=== PATIENT | female | born 1970 | race Caucasian/White ===

== ENCOUNTER 2023-09-18 13:51 | Emergency (ER) | payer BC ==
[~2023-09-18] VITALS: Ht 170.2 cm; Wt 75.0 kg
[2023-09-18 14:29] VITALS: BP 89/47; PULSE 125; RESP 20; TEMP 98.3; O2SAT 100
[2023-09-18 15:06] LABS: BASOPHILS # (AUTO) 0.1 X10'3 (0-0.2); EOSINOPHILS # (AUTO) 0.1 X10'3 (0-0.9); EOSINOPHILS % (AUTO) 0.4 % (0-6); HEMOGLOBIN 8.6 g/dl (12.0-16.0); LYMPHOCYTES # (AUTO) 1.2 X10'3 (1.1-4.8); LYMPHOCYTES % (AUTO) 8.9 % (21-51); MEAN CORPUSCULAR HGB CONC 33.4 g/dL (33.0-36.5); MEAN PLATELET VOLUME 6.9 FL (7.4-10.4); RED BLOOD COUNT 2.78 X10'6 (4.20-5.60)
[2023-09-18 15:07] LABS: BASOPHILS % (AUTO) 0.9 % (0-1); HEMATOCRIT 25.8 % (35.0-45.0); MEAN CORPUSCULAR HEMOGLOBIN 30.9 PG (27.0-31.0); MEAN CORPUSCULAR VOLUME 92.7 FL (78-98); MONOCYTES # (AUTO) 0.6 X10'3 (0-0.9); MONOCYTES % (AUTO) 4.2 % (2-12); NEUTROPHILS % (AUTO) 85.6 % (42-75); RED CELL DISTRIBUTION WIDTH 14.7 % (11.5-14.5)
[2023-09-18 15:10] LABS: PLATELET COUNT 1053 X10'3 (140-440)
[2023-09-18 15:22] LABS: ALANINE AMINOTRANSFERASE 11 U/L (12-78); ALBUMIN 1.8 G/DL (3.4-5.0); ALBUMIN/GLOBULIN RATIO 0.3 (1.1-1.5); ALKALINE PHOSPHATASE 169 IU/L (46-116); ANION GAP 17 (8-16); ASPARTATE AMINO TRANSFERASE 14 U/L (10-37); BILIRUBIN,TOTAL 0.4 MG/DL (0.1-1.0); BLOOD UREA NITROGEN 54 MG/DL (7-18); BUN/CREATININE RATIO 14.2 (10.0-20.0); CALCIUM 7.7 MG/DL (8.5-10.1); CHLORIDE 89 MMOL/L (99-107); GLUCOSE 109 MG/DL (70-104); LIPASE 57 U/L (16-77); POTASSIUM 3.6 MMOL/L (3.5-5.1); SODIUM 128 MMOL/L (135-145); TOTAL CARBON DIOXIDE 22.5 MMOL/L (24-32); eCRCL 17 ML/MIN; eGFR 13 ML/MIN
[2023-09-18 15:41] LABS: LARGE PLATELETS FEW; PLATELET ESTIMATE INCREASED
[2023-09-18 15:42] LABS: SCHISTOCYTES FEW; TEAR DROP CELLS FEW
[2023-09-24] MEDS ORDERED: DOCU-391 PO (14:02)
[2023-09-24] MEDS ORDERED: SYN0.088T PO (14:02)
[2023-09-24] MEDS ORDERED: TOPI-253 PO (14:02)
[2023-09-24] MEDS ORDERED: HYDR-3972 PO (14:02)
[2023-09-24] MEDS ORDERED: SUMA100T16 PO ×2 (14:02)
[2023-09-24] MEDS ORDERED: DULO30CA52 PO (14:05)
[2023-09-24] MEDS ORDERED: OMEP40CA21 PO (14:05)
[2023-09-24] MEDS ORDERED: CIPR750T14 PO (14:05)
[2023-09-24] MEDS ORDERED: NORT25CA PO (14:05)
== END 2023-09-18 23:30 | disposition left against medical advice (07) ==
LOC: ER 13:52
DX: L76.22 Postprocedural hemorrhage of skin and subcutaneous tissue following other procedure (principal); Z53.21 Procedure and treatment not carried out due to patient leaving prior to being seen by health care provider
CPT/HCPCS: 36415; 80053; 83690; 84145; 85008; 85025; 99281; 99284

== ENCOUNTER 2023-09-25 07:59 | Day surgery (SDC) | payer BC ==
[~2023-09-25] VITALS: Ht 167.6 cm; Wt 72.5 kg
[2023-09-25] VITALS (19 sets, daily range): BP systolic 113–137; BP diastolic 64–84; PULSE 101–111; RESP 12–23; TEMP 98.3; O2SAT 93–99
[~2023-09-25 07:59] MED LIST: CIPR750T14 PO; DOCU-391 PO; DULO30CA52 PO; HYDR-3972 PO; NORT25CA PO; OMEP40CA21 PO; SYN0.088T PO; TOPI-253 PO; ceFAZolin inj. 3,000 MG in normal saline 100ml IV soln 100 ML IV ONE; cefazolin 2gm/D5W 100mL 100 ML IV ONE; famotidine 20mg tablet PO ONE; ringers solution, lacted 1,000 ML IV SCH
[2023-09-25] MEDS ORDERED: morphine 4 MG/ML inj SYRINge IV PRN (10:00)
[2023-09-25] MEDS ORDERED: ondansetron/PF 4mg/2ml inj IV PRN (10:00)
[2023-09-25] MEDS ORDERED: fentaNYL/PF 50MCG/1 ML 2ML syringe IV PRN ×2 (10:00)
[2023-09-25] MEDS ORDERED: hydrALAZINE 20mg/ml inj. IV PRN (10:00)
[2023-09-25] MEDS ORDERED: labetalol 20mg/4ml (5mg/ml) syringe IV PRN (10:00)
[2023-09-25] MEDS ORDERED: morphine 2 MG/ML inj. syringe IV PRN (10:00)
[2023-09-25] MEDS ORDERED: ringers solution, lacted 1,000 ML IV SCH (10:00)
[2023-09-25] MEDS ORDERED: acetaminophen 1,000mg/100ml IV 100 ML IV ONE (10:20)
[2023-09-25] MEDS ORDERED: ketorolac trometh. 30mg/ml inj. IV ONE (10:20)
[2023-09-25] MEDS ORDERED: Dakins solution (1/4 strength) 473ml solution TP SCH (11:15)
[2023-09-25] MEDS ORDERED: Dakins solution (1/4 strength) 473ml solution TP ONE (11:15)
[2023-09-25] MEDS ORDERED: midazolam 1 mg/ML 2ml injection ONE (13:08)
[2023-09-25] MEDS ORDERED: fentaNYL/PF 50MCG/1 ML 2ML syringe ONE (13:08)
[2023-09-25] MEDS ORDERED: propofol inj 20 ML IV ONE (13:09)
[2023-09-25] MEDS ORDERED: LIDOcaine 2% (20mg/ml) 5ml vial ONE (13:09)
[2023-09-25] MEDS ORDERED: ondansetron/PF 4mg/2ml inj ONE (13:09)
[2023-09-25] MEDS ORDERED: dexamethasone sod phosphate 4mg/ml inj. ONE (13:09)
[2023-09-25] MEDS ORDERED: desflurane 240ml liquid inh. IH ONE (13:10)
[2023-09-25] MEDS ORDERED: HYDROcodone/acetaminophen 10/325mg tab PO ONE (16:25)
== END 2023-09-25 17:00 | disposition home or self-care (01) ==
LOC: PAS 07:59
PROVIDERS: ATTEND Surgery
DX: T81.89XA Other complications of procedures, not elsewhere classified, initial encounter (principal); I10 Essential (primary) hypertension; K21.9 Gastro-esophageal reflux disease without esophagitis; F32.A Depression, unspecified; F41.9 Anxiety disorder, unspecified; G43.909 Migraine, unspecified, not intractable, without status migrainosus; D64.9 Anemia, unspecified; Z93.2 Ileostomy status; Z90.49 Acquired absence of other specified parts of digestive tract; Z98.890 Other specified postprocedural states; Z79.899 Other long term (current) drug therapy; Z88.2 Allergy status to sulfonamides; Z87.440 Personal history of urinary (tract) infections; Y83.8 Other surgical procedures as the cause of abnormal reaction of the patient, or of later complication, without mention of misadventure at the time of the procedure; Y92.89 Other specified places as the place of occurrence of the external cause
CPT/HCPCS: 10180; 82948; J0131; J0690; J1100; J1885; J2250; J2270; J2405; J2704; J3010; J3490; J7030; J7120; Z7506; Z7512; A4618; A6253; A6446; A6449; A7000

== ENCOUNTER 2023-12-15 11:35 | Inpatient (IN) | payer BC ==
[~2023-12-15] VITALS: Ht 167.6 cm; Wt 66.6 kg
[2023-12-15] VITALS (18 sets, daily range): BP systolic 120–145; BP diastolic 62–86; PULSE 102–115; RESP 16–26; TEMP 97.6–98.7; O2SAT 95–100
[~2023-12-15 11:35] MED LIST changes: -TOPI-253 PO; +TOPI-95 PO; -ceFAZolin inj. 3,000 MG in normal saline 100ml IV soln 100 ML IV ONE; -cefazolin 2gm/D5W 100mL 100 ML IV ONE; -famotidine 20mg tablet PO ONE; -ringers solution, lacted 1,000 ML IV SCH
[2023-12-15] MEDS ORDERED: ringers solution, lacted 1,000 ML IV SCH (11:55)
[2023-12-15] MEDS ORDERED: enalaprilat dihydrate 2.5mg/2ml vial IV PRN (11:55)
[2023-12-15] MEDS ORDERED: proCHLORperazine 10 MG/2 ml inj IV PRN (11:55)
[2023-12-15] MEDS ORDERED: meperidine/PF 25mg/ml syringe IV PRN ×3 (11:55)
[2023-12-15] MEDS ORDERED: labetalol 20mg/4ml (5mg/ml) syringe IV PRN (11:55)
[2023-12-15] MEDS: ringers solution, lacted 1,000 ML IV ONE (12:20)
[2023-12-15] MEDS: ringers solution, lacted 1,000 ML IV SCH (12:20)
[2023-12-15] MEDS ORDERED: HYDROmorphone inj. 0.5 MG/0.5 ML DISP.SYRIN IV PRN (12:25)
[2023-12-15 12:43] LABS: ALANINE AMINOTRANSFERASE 15 U/L (12-78); ALBUMIN 1.7 G/DL (3.4-5.0); ALBUMIN/GLOBULIN RATIO 0.3 (1.1-1.5); ALKALINE PHOSPHATASE 145 IU/L (46-116); ANION GAP 16 (8-16); ASPARTATE AMINO TRANSFERASE 12 U/L (10-37); BILIRUBIN,DIRECT 0.1 MG/DL (0-0.3); BILIRUBIN,TOTAL 0.4 MG/DL (0.1-1.0); BLOOD UREA NITROGEN 6 MG/DL (7-18); BUN/CREATININE RATIO 10.9 (10.0-20.0); CALCIUM 8.2 MG/DL (8.5-10.1); CHLORIDE 93 MMOL/L (99-107); CREATININE 0.55 MG/DL (0.40-0.90); GLUCOSE 82 MG/DL (70-104); POTASSIUM 3.1 MMOL/L (3.5-5.1); SODIUM 133 MMOL/L (135-145); TOTAL CARBON DIOXIDE 24.3 MMOL/L (24-32); TOTAL PROTEIN 6.7 G/DL (6.4-8.2); eCRCL 113 ML/MIN; eGFR > 90 ML/MIN
[2023-12-15 12:45] LABS: EOSINOPHILS % (AUTO) 0.3 % (0-6); HEMOGLOBIN 7.4 g/dl (12.0-16.0); MONOCYTES # (AUTO) 1.9 X10'3 (0-0.9)
[2023-12-15 12:47] LABS: BASOPHILS % (AUTO) 0.1 % (0-1); HEMATOCRIT 22.7 % (35.0-45.0); LYMPHOCYTES # (AUTO) 1.4 X10'3 (1.1-4.8); LYMPHOCYTES % (AUTO) 9.4 % (21-51); MEAN CORPUSCULAR HEMOGLOBIN 29.1 PG (27.0-31.0); MEAN CORPUSCULAR HGB CONC 32.8 g/dL (33.0-36.5); MEAN CORPUSCULAR VOLUME 88.8 FL (78-98); MONOCYTES % (AUTO) 12.6 % (2-12); NEUTROPHILS # (AUTO) 11.7 X10'3 (1.8-7.7); NEUTROPHILS % (AUTO) 77.6 % (42-75); RED BLOOD COUNT 2.56 X10'6 (4.20-5.60); RED CELL DISTRIBUTION WIDTH 15.9 % (11.5-14.5)
[2023-12-15 13:08] LABS: TOTAL CELLS COUNTED 100
[2023-12-15 13:09] LABS: PLATELET ESTIMATE INCREASED; POIKILOCYTOSIS FEW
[2023-12-15 13:10] LABS: STOMATOCYTES FEW
[2023-12-15 13:13] LABS: PLATELET COUNT 934 X10'3 (140-440)
[2023-12-15] MEDS: magnesium 2GM in 50ml NS 50 ML IV ONE (13:45)
[2023-12-15] MEDS ORDERED: Potassium Cl inj 40 MEQ in normal saline 250ml IV soln 250 ML IV ONE (14:00)
[2023-12-15] MEDS ORDERED: sevoflurane 250ml liquid IH ONE (15:04)
[2023-12-15] MEDS ORDERED: midazolam 1 mg/ML 2ml injection ONE (15:07)
[2023-12-15] MEDS ORDERED: fentaNYL /PF 50mcg/ml 5ml ampule ONE (15:07)
[2023-12-15] MEDS ORDERED: propofol inj 20 ML IV ONE (15:09)
[2023-12-15] MEDS ORDERED: LIDOcaine 1%/PF 5ML 10 MG/ML VIAL ONE (15:09)
[2023-12-15] MEDS ORDERED: dexamethasone sod phosphate 4mg/ml inj. ONE (15:21)
[2023-12-15] MEDS ORDERED: rocuronium 10mg/ml inj IV ONE (15:21)
[2023-12-15] MEDS ORDERED: albumin (Human) 5% 250ml 250 ML IV ONE (15:22)
[2023-12-15] MEDS ORDERED: ondansetron/PF 4mg/2ml inj ONE (15:22)
[2023-12-15] MEDS ORDERED: acetaminophen 1,000mg/100ml IV 100 ML IV ONE (16:36)
[2023-12-15] MEDS ORDERED: morphine 4 MG/ML inj SYRINge IV ONE (16:46)
[2023-12-15] MEDS: ondansetron/PF 4mg/2ml inj IV PRN (17:01)
[2023-12-15] MEDS: morphine 2 MG/ML inj. syringe IV PRN (17:03)
[2023-12-15] MEDS: morphine 4 MG/ML inj SYRINge IV PRN (17:19)
[2023-12-15] MEDS: Potassium Cl inj 40 MEQ in normal saline 250ml IV soln 250 ML IV ONE (17:20)
[2023-12-15] MEDS ORDERED: naloxone 0.4 mg/ml inj IV PRN (17:45)
[2023-12-15] MEDS ORDERED: morphine/NS PCA 1mg/ml 50ml 50 ML IV SCH (19:00)
[2023-12-15] MEDS: morphine/NS PCA 1mg/ml 50ml 50 ML IV SCH ×2 (19:55→20:03)
[2023-12-15] MEDS: topiramate 100mg tablet PO SCH (21:00)
[2023-12-15] MEDS: nortriptyline 25mg capsule PO SCH (21:00)
[2023-12-15] MEDS: fluconazole-Diflucan 100MG/NS 50 ML IV SCH (23:11)
[2023-12-16] VITALS (8 sets, daily range): BP systolic 117–131; BP diastolic 61–74; PULSE 88–112; RESP 16–20; TEMP 97.2–98.4; O2SAT 95–97
[2023-12-16] MEDS: piperacillin/tazo 3.375gm/50ml 50 ML IV SCH
[2023-12-16 02:59] LABS: EOSINOPHILS % (AUTO) 0 % (0-6)
[2023-12-16 03:02] LABS: ALBUMIN 1.6 G/DL (3.4-5.0); ANION GAP 21 (8-16); BLOOD UREA NITROGEN 5 MG/DL (7-18); BUN/CREATININE RATIO 10.2 (10.0-20.0); CALCIUM 8.4 MG/DL (8.5-10.1); CHLORIDE 103 MMOL/L (99-107); CREATININE 0.49 MG/DL (0.40-0.90); GLUCOSE 118 MG/DL (70-104); PHOSPHORUS 5.3 MG/DL (2.3-4.5); POTASSIUM 4.3 MMOL/L (3.5-5.1); SODIUM 144 MMOL/L (135-145); TOTAL CARBON DIOXIDE 20.4 MMOL/L (24-32); eCRCL 127 ML/MIN; eGFR > 90 ML/MIN
[2023-12-16 03:03] LABS: BASOPHILS % (AUTO) 0.1 % (0-1); HEMATOCRIT 22.2 % (35.0-45.0); HEMOGLOBIN 7.1 g/dl (12.0-16.0); LYMPHOCYTES % (AUTO) 6.2 % (21-51); MEAN CORPUSCULAR HEMOGLOBIN 28.8 PG (27.0-31.0); MEAN CORPUSCULAR HGB CONC 31.8 g/dL (33.0-36.5); MEAN CORPUSCULAR VOLUME 90.4 FL (78-98); MEAN PLATELET VOLUME 6.1 FL (7.4-10.4); MONOCYTES # (AUTO) 0.6 X10'3 (0-0.9); MONOCYTES % (AUTO) 3.9 % (2-12); NEUTROPHILS # (AUTO) 14.8 X10'3 (1.8-7.7); NEUTROPHILS % (AUTO) 89.8 % (42-75); PLATELET COUNT 883 X10'3 (140-440); RED BLOOD COUNT 2.46 X10'6 (4.20-5.60); RED CELL DISTRIBUTION WIDTH 16.1 % (11.5-14.5); WHITE BLOOD COUNT 16.5 X10'3 (4.5-11.0)
[2023-12-16] MEDS: duloxetine 30mg CAPSULE.DR PO SCH (08:24)
[2023-12-16] MEDS: pantoprazole 40 MG vial IV SCH (08:24)
[2023-12-16] MEDS: topiramate 25mg tablet PO SCH (08:24)
[2023-12-16] MEDS: levoTHYROXINE 88mcg tablet PO SCH (08:24)
[2023-12-16] MEDS: enoxaparin 30mg/0.3ml syringe SUBCUT SCH (08:25)
[2023-12-16] MEDS ORDERED: Dextrose 10%-water IV solution 1,000 ML IV PRN (17:25)
[2023-12-16] MEDS ORDERED: METH-798 PO (19:07)
[2023-12-16] MEDS: METHOCARBAMOL 750 MG TAB PO SCH (20:36)
[2023-12-16] MEDS: metoprolol tartrate 25mg tablet PO SCH (20:37)
[2023-12-16 20:59] LABS: ALANINE AMINOTRANSFERASE 13 U/L (12-78); ALBUMIN 1.6 G/DL (3.4-5.0); ALBUMIN/GLOBULIN RATIO 0.4 (1.1-1.5); ALKALINE PHOSPHATASE 135 IU/L (46-116); ANION GAP 12 (8-16); ASPARTATE AMINO TRANSFERASE 9 U/L (10-37); BILIRUBIN,TOTAL 0.3 MG/DL (0.1-1.0); BLOOD UREA NITROGEN 5 MG/DL (7-18); BUN/CREATININE RATIO 8.5 (10.0-20.0); CALCIUM 8.5 MG/DL (8.5-10.1); CHLORIDE 104 MMOL/L (99-107); CREATININE 0.59 MG/DL (0.40-0.90); GLUCOSE 102 MG/DL (70-104); MAGNESIUM 1.8 MG/DL (1.5-2.4); PHOSPHORUS 3.8 MG/DL (2.3-4.5); POTASSIUM 3.8 MMOL/L (3.5-5.1); SODIUM 141 MMOL/L (135-145); TOTAL CARBON DIOXIDE 24.9 MMOL/L (24-32); TOTAL PROTEIN 6.1 G/DL (6.4-8.2); TRIGLYCERIDES 133 MG/DL (20-135); eCRCL 106 ML/MIN; eGFR > 90 ML/MIN
[2023-12-17] VITALS (8 sets, daily range): BP systolic 117–133; BP diastolic 63–73; PULSE 99–114; RESP 12–18; TEMP 96.6–98.7; O2SAT 93–99
[2023-12-17 07:10] LABS: WHITE BLOOD COUNT 14.4 X10'3 (4.5-11.0)
[2023-12-17 07:14] LABS: HEMATOCRIT 18.7 % (35.0-45.0); HEMOGLOBIN 6.1 g/dl (12.0-16.0); MEAN CORPUSCULAR VOLUME 88.9 FL (78-98)
[2023-12-17 07:15] LABS: ABSOLUTE RETICS # 85000 /CUMM (23000-93000); MEAN CORPUSCULAR HEMOGLOBIN 28.9 PG (27.0-31.0); MEAN CORPUSCULAR HGB CONC 32.5 g/dL (33.0-36.5); MEAN PLATELET VOLUME 5.7 FL (7.4-10.4); PLATELET COUNT 861 X10'3 (140-440); RED CELL DISTRIBUTION WIDTH 16.3 % (11.5-14.5); RETICULOCYTE % (AUTO) 0.4 % (0.5-1.5)
[2023-12-17 07:35] LABS: ALANINE AMINOTRANSFERASE 12 U/L (12-78); ALBUMIN 1.4 G/DL (3.4-5.0); ALBUMIN/GLOBULIN RATIO 0.3 (1.1-1.5); ALKALINE PHOSPHATASE 116 IU/L (46-116); ANION GAP 8 (8-16); ASPARTATE AMINO TRANSFERASE 7 U/L (10-37); BILIRUBIN,TOTAL 0.2 MG/DL (0.1-1.0); BLOOD UREA NITROGEN 5 MG/DL (7-18); BUN/CREATININE RATIO 11.9 (10.0-20.0); CALCIUM 8.4 MG/DL (8.5-10.1); CHLORIDE 104 MMOL/L (99-107); CREATININE 0.42 MG/DL (0.40-0.90); FERRITIN 314 NG/ML (8-252); GLUCOSE 80 MG/DL (70-104); MAGNESIUM 1.7 MG/DL (1.5-2.4); PHOSPHORUS 3.7 MG/DL (2.3-4.5); POTASSIUM 3.5 MMOL/L (3.5-5.1); SODIUM 141 MMOL/L (135-145); TOTAL CARBON DIOXIDE 29.1 MMOL/L (24-32); TOTAL PROTEIN 5.6 G/DL (6.4-8.2); TRIGLYCERIDES 144 MG/DL (20-135); eCRCL 148 ML/MIN; eGFR > 90 ML/MIN
[2023-12-17] MEDS ORDERED: potassium Cl 20 mEq SR tablet PO PRN ×2 (08:55)
[2023-12-17] MEDS ORDERED: magnesium Cl slow-release 64mg tablet PO PRN (08:55)
[2023-12-17] MEDS ORDERED: magnesium 2GM in 50ml NS 50 ML IV PRN (08:55)
[2023-12-17] MEDS ORDERED: magnesium 4gm in 100ml NS 100 ML IV PRN (08:55)
[2023-12-17] MEDS: duloxetine 30mg CAPSULE.DR PO SCH (10:50)
[2023-12-17] MEDS ORDERED: CHROMIC CHLORIDE IV PRN (15:30)
[2023-12-17] MEDS ORDERED: [UNRECOGNIZED DRUG - OTHER] IV PRN (15:30)
[2023-12-17] MEDS ORDERED: COPPER IV PRN (15:30)
[2023-12-17] MEDS ORDERED: SELENIUM IV PRN (15:30)
[2023-12-17] MEDS ORDERED: ZINC IV PRN (15:30)
[2023-12-17] MEDS ORDERED: MANGANESE IV PRN (15:30)
[2023-12-17] MEDS: ZINC/COPPER/MANGANESE/SELENIUM 1 ML, chromic chloride inj. 10 MCG in AA 5%/CALCIUM/LYTE... IV SCH (16:53)
[2023-12-17] MEDS: MVI, adult No.4 with vit. K 10 ML in dextrose 5% water 500ml 500 ML IV SCH (16:53)
[2023-12-17 19:11] LABS: HEMOGLOBIN 7.5 g/dl (12.0-16.0)
[2023-12-17 19:12] LABS: MEAN CORPUSCULAR HGB CONC 32.7 g/dL (33.0-36.5); MEAN CORPUSCULAR VOLUME 88.7 FL (78-98); MEAN PLATELET VOLUME 5.6 FL (7.4-10.4); PLATELET COUNT 782 X10'3 (140-440); RED BLOOD COUNT 2.59 X10'6 (4.20-5.60); RED CELL DISTRIBUTION WIDTH 15.6 % (11.5-14.5)
[2023-12-17] MEDS: NUT.TX.IMPAIRED DIGEST FXN (Ensure Clear) 237 ML PO SCH (19:22)
[2023-12-17] MEDS: K and/or MAG REPLACEMENT MC SCH (20:00)
[2023-12-18] VITALS (18 sets, daily range): BP systolic 116–156; BP diastolic 64–84; PULSE 103–126; RESP 14–27; TEMP 97.5–98.2; O2SAT 94–99
[2023-12-18] MEDS ORDERED: DEXTROSE 15 GM of carb/4 tabs (each vial/BOTTLE has 4 tablets) PO PRN ×2 (01:45)
[2023-12-18] MEDS ORDERED: dextrose 50%-water 50ml dispensing syringe IV PRN ×2 (01:45)
[2023-12-18] MEDS ORDERED: glucagon, human recombinant 1mg kit SUBCUT PRN (01:45)
[2023-12-18] MEDS: MESSAGE TO PHARMACY PO ONE (01:54)
[2023-12-18] MEDS: insulin regular, human U-100 3ml vial - multi-dose SQ SCH (02:27)
[2023-12-18 06:30] LABS: BASOPHILS % (AUTO) 0.1 % (0-1); EOSINOPHILS # (AUTO) 0.1 X10'3 (0-0.9); EOSINOPHILS % (AUTO) 0.5 % (0-6); HEMATOCRIT 23.3 % (35.0-45.0); HEMOGLOBIN 7.5 g/dl (12.0-16.0); LYMPHOCYTES # (AUTO) 2.4 X10'3 (1.1-4.8); LYMPHOCYTES % (AUTO) 17.2 % (21-51); MEAN CORPUSCULAR HEMOGLOBIN 28.3 PG (27.0-31.0); MEAN CORPUSCULAR HGB CONC 32.1 g/dL (33.0-36.5); MEAN CORPUSCULAR VOLUME 88.1 FL (78-98); MEAN PLATELET VOLUME 5.8 FL (7.4-10.4); MONOCYTES # (AUTO) 1.3 X10'3 (0-0.9); MONOCYTES % (AUTO) 9.4 % (2-12); NEUTROPHILS # (AUTO) 10.2 X10'3 (1.8-7.7); NEUTROPHILS % (AUTO) 72.8 % (42-75); PLATELET COUNT 713 X10'3 (140-440); RED BLOOD COUNT 2.65 X10'6 (4.20-5.60); RED CELL DISTRIBUTION WIDTH 15.8 % (11.5-14.5)
[2023-12-18 06:35] LABS: APTT 29 SECONDS (22-32); INR 1.1 INR; PROTHROMBIN TIME 11.8 SECONDS (9.0-12.0)
[2023-12-18 07:04] LABS: ALANINE AMINOTRANSFERASE 11 U/L (12-78); ALBUMIN 1.3 G/DL (3.4-5.0); ALBUMIN/GLOBULIN RATIO 0.3 (1.1-1.5); ALKALINE PHOSPHATASE 107 IU/L (46-116); ANION GAP 5 (8-16); ASPARTATE AMINO TRANSFERASE 13 U/L (10-37); BILIRUBIN,TOTAL 0.2 MG/DL (0.1-1.0); BLOOD UREA NITROGEN 3 MG/DL (7-18); BUN/CREATININE RATIO 6.4 (10.0-20.0); CALCIUM 7.7 MG/DL (8.5-10.1); CHLORIDE 101 MMOL/L (99-107); CREATININE 0.47 MG/DL (0.40-0.90); GLUCOSE 138 MG/DL (70-104); MAGNESIUM 1.6 MG/DL (1.5-2.4); PHOSPHORUS 3.7 MG/DL (2.3-4.5); SODIUM 139 MMOL/L (135-145); TOTAL CARBON DIOXIDE 32.7 MMOL/L (24-32); TOTAL PROTEIN 5.3 G/DL (6.4-8.2); TRIGLYCERIDES 98 MG/DL (20-135); eCRCL 133 ML/MIN; eGFR > 90 ML/MIN
[2023-12-18 07:08] LABS: HEMOGLOBIN A1C 5.3 % (4.5-6.2)
[2023-12-18 07:10] LABS: POTASSIUM 2.7 MMOL/L (3.5-5.1)
[2023-12-18] MEDS: fat emulsion 20% inj. 100 ML IV SCH (09:47)
[2023-12-18] MEDS: potassium Cl 40MEQ/1/2NS 520ml 520 ML IV PRN (09:54)
[2023-12-18] MEDS: ringers solution, lacted 1,000 ML IV SCH (15:40)
[2023-12-18] MEDS ORDERED: meperidine/PF 25mg/ml syringe IV PRN ×2 (15:40)
[2023-12-18] MEDS ORDERED: morphine 2 MG/ML inj. syringe IV PRN (15:40)
[2023-12-18] MEDS ORDERED: morphine 4 MG/ML inj SYRINge IV PRN (15:40)
[2023-12-18] MEDS ORDERED: propofol inj 20 ML IV ONE (16:22)
[2023-12-18] MEDS ORDERED: sevoflurane 250ml liquid IH ONE (16:23)
[2023-12-18] MEDS ORDERED: fentaNYL/PF 50MCG/1 ML 2ML syringe ONE (16:25)
[2023-12-18] MEDS ORDERED: midazolam 1 mg/ML 2ml injection ONE (16:25)
[2023-12-18] MEDS ORDERED: albumin (Human) 5% 250ml 250 ML IV ONE ×2 (17:07→17:31)
[2023-12-18] MEDS: ondansetron/PF 4mg/2ml inj IV PRN (17:45)
[2023-12-18] MEDS: meperidine/PF 25mg/ml syringe IV PRN (17:45)
[2023-12-18] MEDS ORDERED: potassium Cl 40MEQ/270ML bag 270 ML IV PRN (19:55)
[2023-12-18] MEDS ORDERED: insulin glargine (Lantus) pen - multi-dose SQ SCH (21:00)
[2023-12-18] MEDS: PCA WASTE DOCUMENTATION 1 MG ML MC PRN (21:16)
[2023-12-18] MEDS: proCHLORperazine 10 MG/2 ml inj IV PRN (23:01)
[2023-12-19] VITALS (7 sets, daily range): BP systolic 107–135; BP diastolic 60–76; PULSE 94–113; RESP 14–18; TEMP 97.3–99.4; O2SAT 94–96
[2023-12-19] MEDS ORDERED: DEXTROSE 15 GM of carb/4 tabs (each vial/BOTTLE has 4 tablets) PO PRN ×2 (03:05)
[2023-12-19] MEDS ORDERED: glucagon, human recombinant 1mg kit SUBCUT PRN (03:05)
[2023-12-19] MEDS: MESSAGE TO PHARMACY PO ONE (03:05)
[2023-12-19] MEDS ORDERED: dextrose 50%-water 50ml dispensing syringe IV PRN ×2 (03:05)
[2023-12-19] MEDS: insulin regular, human U-100 3ml vial - multi-dose SQ SCH (08:53)
[2023-12-19 09:22] LABS: EOSINOPHILS # (AUTO) 0.1 X10'3 (0-0.9); EOSINOPHILS % (AUTO) 0.7 % (0-6); HEMOGLOBIN 7.9 g/dl (12.0-16.0); MEAN CORPUSCULAR HEMOGLOBIN 29.1 PG (27.0-31.0); MEAN PLATELET VOLUME 5.9 FL (7.4-10.4); NEUTROPHILS # (AUTO) 12.1 X10'3 (1.8-7.7); RED BLOOD COUNT 2.73 X10'6 (4.20-5.60)
[2023-12-19 09:24] LABS: BASOPHILS % (AUTO) 0.2 % (0-1); HEMATOCRIT 24.3 % (35.0-45.0); LYMPHOCYTES # (AUTO) 2.2 X10'3 (1.1-4.8); LYMPHOCYTES % (AUTO) 14.3 % (21-51); MEAN CORPUSCULAR HGB CONC 32.7 g/dL (33.0-36.5); MEAN CORPUSCULAR VOLUME 88.9 FL (78-98); MONOCYTES # (AUTO) 0.8 X10'3 (0-0.9); MONOCYTES % (AUTO) 5.3 % (2-12); NEUTROPHILS % (AUTO) 79.5 % (42-75); RED CELL DISTRIBUTION WIDTH 15.3 % (11.5-14.5); WHITE BLOOD COUNT 15.3 X10'3 (4.5-11.0)
[2023-12-19 09:42] LABS: ALANINE AMINOTRANSFERASE 15 U/L (12-78); ALBUMIN 1.6 G/DL (3.4-5.0); ALBUMIN/GLOBULIN RATIO 0.4 (1.1-1.5); ALKALINE PHOSPHATASE 102 IU/L (46-116); ANION GAP 6 (8-16); ASPARTATE AMINO TRANSFERASE 10 U/L (10-37); BILIRUBIN,TOTAL 0.3 MG/DL (0.1-1.0); BLOOD UREA NITROGEN 5 MG/DL (7-18); BUN/CREATININE RATIO 10.6 (10.0-20.0); CALCIUM 8.2 MG/DL (8.5-10.1); CHLORIDE 101 MMOL/L (99-107); CREATININE 0.47 MG/DL (0.40-0.90); GLUCOSE 224 MG/DL (70-104); MAGNESIUM 1.5 MG/DL (1.5-2.4); PHOSPHORUS 3.9 MG/DL (2.3-4.5); POTASSIUM 3.4 MMOL/L (3.5-5.1); SODIUM 137 MMOL/L (135-145); TOTAL CARBON DIOXIDE 29.8 MMOL/L (24-32); TOTAL PROTEIN 5.4 G/DL (6.4-8.2); TRIGLYCERIDES 96 MG/DL (20-135); eCRCL 133 ML/MIN; eGFR > 90 ML/MIN
[2023-12-19 11:11] LABS: PLATELET COUNT 672 X10'3 (140-440)
[2023-12-19 11:13] LABS: HYPOCHROMASIA 1+; PLATELET ESTIMATE INCREASED
[2023-12-19 11:15] LABS: BURR CELLS FEW
[2023-12-19 11:20] LABS: ANISOCYTOSIS FEW; POLYCHROMASIA FEW; STOMATOCYTES FEW
[2023-12-19] MEDS: magnesium 4gm in 100ml NS 100 ML IV ONE (13:53)
[2023-12-19] MEDS: insulin glargine (Lantus) pen - multi-dose SQ SCH (21:00)
[2023-12-20 06:00] VITALS: BP 117/59; PULSE 90; RESP 13; TEMP 98.2; O2SAT 97
[2023-12-20 07:28] LABS: ALANINE AMINOTRANSFERASE 24 U/L (12-78); ALBUMIN 1.5 G/DL (3.4-5.0); ALBUMIN/GLOBULIN RATIO 0.3 (1.1-1.5); ALKALINE PHOSPHATASE 172 IU/L (46-116); ANION GAP 3 (8-16); ASPARTATE AMINO TRANSFERASE 20 U/L (10-37); BILIRUBIN,TOTAL 0.3 MG/DL (0.1-1.0); BLOOD UREA NITROGEN 9 MG/DL (7-18); BUN/CREATININE RATIO 23.1 (10.0-20.0); CALCIUM 8.5 MG/DL (8.5-10.1); CHLORIDE 100 MMOL/L (99-107); CREATININE 0.39 MG/DL (0.40-0.90); MAGNESIUM 1.9 MG/DL (1.5-2.4); POTASSIUM 3.9 MMOL/L (3.5-5.1); SODIUM 135 MMOL/L (135-145); TOTAL CARBON DIOXIDE 32.3 MMOL/L (24-32); TOTAL PROTEIN 5.8 G/DL (6.4-8.2); TRIGLYCERIDES 107 MG/DL (20-135); eCRCL 160 ML/MIN; eGFR > 90 ML/MIN
[2023-12-20 07:44] LABS: GLUCOSE 44 MG/DL (70-104)
[2023-12-20 18:00] VITALS: BP 102/54; PULSE 89; RESP 16; TEMP 98.3; O2SAT 98
[2023-12-20 22:00] VITALS: BP 97/45; PULSE 96; RESP 17; TEMP 97.3; O2SAT 99
[2023-12-21 06:00] VITALS: BP 109/57; PULSE 101; RESP 17; TEMP 97.7; O2SAT 99
[2023-12-21 06:45] LABS: ALANINE AMINOTRANSFERASE 19 U/L (12-78); ALBUMIN 1.5 G/DL (3.4-5.0); ALBUMIN/GLOBULIN RATIO 0.4 (1.1-1.5); ALKALINE PHOSPHATASE 118 IU/L (46-116); ANION GAP 3 (8-16); ASPARTATE AMINO TRANSFERASE 14 U/L (10-37); BILIRUBIN,TOTAL 0.2 MG/DL (0.1-1.0); BLOOD UREA NITROGEN 12 MG/DL (7-18); BUN/CREATININE RATIO 27.3 (10.0-20.0); CALCIUM 8.6 MG/DL (8.5-10.1); CHLORIDE 100 MMOL/L (99-107); CREATININE 0.44 MG/DL (0.40-0.90); GLUCOSE 120 MG/DL (70-104); MAGNESIUM 1.7 MG/DL (1.5-2.4); POTASSIUM 3.7 MMOL/L (3.5-5.1); SODIUM 134 MMOL/L (135-145); TOTAL CARBON DIOXIDE 31.4 MMOL/L (24-32); TOTAL PROTEIN 5.7 G/DL (6.4-8.2); TRIGLYCERIDES 131 MG/DL (20-135); eCRCL 142 ML/MIN; eGFR > 90 ML/MIN
[2023-12-21 10:00] VITALS: BP 112/61; PULSE 94; RESP 17; TEMP 97.2; O2SAT 98
[2023-12-21] MEDS: morphine/NS PCA 1mg/ml 50ml 50 ML IV SCH (11:58)
[2023-12-21 18:00] VITALS: BP 110/54; PULSE 81; RESP 17; TEMP 97.1; O2SAT 99
[2023-12-21 20:00] VITALS: RESP 17; O2SAT 99
[2023-12-21 22:00] VITALS: BP 104/46; PULSE 101; RESP 16; TEMP 98.1; O2SAT 99
[2023-12-22] MEDS: acetaminophen 1,000mg/100ml IV 100 ML IV SCH
[2023-12-22 05:54] LABS: BASOPHILS # (AUTO) 0.1 X10'3 (0-0.2); BASOPHILS % (AUTO) 0.4 % (0-1); EOSINOPHILS # (AUTO) 0.4 X10'3 (0-0.9); EOSINOPHILS % (AUTO) 3.8 % (0-6); HEMOGLOBIN 7.2 g/dl (12.0-16.0); LYMPHOCYTES # (AUTO) 2.8 X10'3 (1.1-4.8); LYMPHOCYTES % (AUTO) 24.3 % (21-51); MEAN CORPUSCULAR HEMOGLOBIN 29.3 PG (27.0-31.0); MEAN CORPUSCULAR HGB CONC 33.2 g/dL (33.0-36.5); MEAN CORPUSCULAR VOLUME 88.4 FL (78-98); MEAN PLATELET VOLUME 5.7 FL (7.4-10.4); MONOCYTES # (AUTO) 1.4 X10'3 (0-0.9); MONOCYTES % (AUTO) 12.6 % (2-12); NEUTROPHILS # (AUTO) 6.7 X10'3 (1.8-7.7); NEUTROPHILS % (AUTO) 58.9 % (42-75); PLATELET COUNT 546 X10'3 (140-440); RED BLOOD COUNT 2.46 X10'6 (4.20-5.60); RED CELL DISTRIBUTION WIDTH 15.4 % (11.5-14.5); WHITE BLOOD COUNT 11.3 X10'3 (4.5-11.0)
[2023-12-22 06:00] VITALS: BP 108/60; PULSE 92; RESP 17; TEMP 97.7; O2SAT 99
[2023-12-22 06:03] LABS: HEMATOCRIT 21.8 % (35.0-45.0)
[2023-12-22 06:40] LABS: ALANINE AMINOTRANSFERASE 24 U/L (12-78); ALBUMIN 1.5 G/DL (3.4-5.0); ALBUMIN/GLOBULIN RATIO 0.3 (1.1-1.5); ALKALINE PHOSPHATASE 127 IU/L (46-116); ANION GAP 6 (8-16); ASPARTATE AMINO TRANSFERASE 22 U/L (10-37); BILIRUBIN,TOTAL 0.1 MG/DL (0.1-1.0); BLOOD UREA NITROGEN 12 MG/DL (7-18); BUN/CREATININE RATIO 33.3 (10.0-20.0); CALCIUM 8.1 MG/DL (8.5-10.1); CHLORIDE 100 MMOL/L (99-107); CREATININE 0.36 MG/DL (0.40-0.90); GLUCOSE 97 MG/DL (70-104); POTASSIUM 3.8 MMOL/L (3.5-5.1); SODIUM 135 MMOL/L (135-145); TOTAL CARBON DIOXIDE 29.5 MMOL/L (24-32); TOTAL PROTEIN 5.9 G/DL (6.4-8.2); eCRCL 173 ML/MIN; eGFR > 90 ML/MIN
[2023-12-22] MEDS ORDERED: PCA WASTE DOCUMENTATION 1 MG ML MC PRN (10:35)
[2023-12-22] MEDS: magnesium hydroxide 30ml (MOM) UD suspension PO ONE (10:57)
[2023-12-22] MEDS: oxyCODONE/APAP 10/325mg tablet PO PRN (10:58)
[2023-12-22] MEDS: PCA WASTE DOCUMENTATION 1 MG ML MC PRN (11:57)
[2023-12-22 14:53] VITALS: BP 107/57; PULSE 64; RESP 17; TEMP 98; O2SAT 97
[2023-12-22 18:00] VITALS: BP 109/49; PULSE 98; RESP 16; TEMP 98.7; O2SAT 99
[2023-12-22] MEDS: cyclobenzaprine 10mg tablet PO PRN (19:04)
[2023-12-22] MEDS: oxyCODONE/APAP 5-325mg tablet PO PRN (19:05)
[2023-12-22 20:00] VITALS: RESP 16; O2SAT 99
[2023-12-22 22:00] VITALS: BP 117/47; PULSE 104; RESP 16; TEMP 97.5; O2SAT 96
[2023-12-23] VITALS (8 sets, daily range): BP systolic 100–123; BP diastolic 48–67; PULSE 87–106; RESP 14–18; TEMP 96.6–98; O2SAT 98–100
[2023-12-23 09:29] LABS: BASOPHILS % (AUTO) 0.3 % (0-1); EOSINOPHILS # (AUTO) 0.3 X10'3 (0-0.9); EOSINOPHILS % (AUTO) 2.5 % (0-6); LYMPHOCYTES # (AUTO) 2.2 X10'3 (1.1-4.8); LYMPHOCYTES % (AUTO) 21.1 % (21-51); MEAN CORPUSCULAR HEMOGLOBIN 27.9 PG (27.0-31.0); MEAN CORPUSCULAR HGB CONC 31.2 g/dL (33.0-36.5); MEAN CORPUSCULAR VOLUME 89.5 FL (78-98); MEAN PLATELET VOLUME 5.7 FL (7.4-10.4); MONOCYTES # (AUTO) 1.2 X10'3 (0-0.9); MONOCYTES % (AUTO) 11.9 % (2-12); NEUTROPHILS # (AUTO) 6.6 X10'3 (1.8-7.7); NEUTROPHILS % (AUTO) 64.2 % (42-75); PLATELET COUNT 495 X10'3 (140-440); RED CELL DISTRIBUTION WIDTH 15.2 % (11.5-14.5); WHITE BLOOD COUNT 10.3 X10'3 (4.5-11.0)
[2023-12-23 09:42] LABS: HEMATOCRIT 21.5 % (35.0-45.0); HEMOGLOBIN 6.7 g/dl (12.0-16.0)
[2023-12-23 09:43] LABS: ALANINE AMINOTRANSFERASE 20 U/L (12-78); ALBUMIN 1.5 G/DL (3.4-5.0); ALBUMIN/GLOBULIN RATIO 0.4 (1.1-1.5); ALKALINE PHOSPHATASE 124 IU/L (46-116); ANION GAP 7 (8-16); ASPARTATE AMINO TRANSFERASE 24 U/L (10-37); BILIRUBIN,TOTAL 0.1 MG/DL (0.1-1.0); BLOOD UREA NITROGEN 11 MG/DL (7-18); BUN/CREATININE RATIO 34.4 (10.0-20.0); CALCIUM 7.2 MG/DL (8.5-10.1); CHLORIDE 105 MMOL/L (99-107); CREATININE 0.32 MG/DL (0.40-0.90); GLUCOSE 126 MG/DL (70-104); PHOSPHORUS 4.1 MG/DL (2.3-4.5); POTASSIUM 3.7 MMOL/L (3.5-5.1); SODIUM 139 MMOL/L (135-145); TOTAL CARBON DIOXIDE 27.4 MMOL/L (24-32); TOTAL PROTEIN 5.6 G/DL (6.4-8.2); TRIGLYCERIDES 169 MG/DL (20-135); eCRCL 195 ML/MIN; eGFR > 90 ML/MIN
[2023-12-23] MEDS ORDERED: LidoCAINE 2% Topical Jelly 11mL syringe TOP ONE (11:25)
[2023-12-23] MEDS: oxyCODONE/APAP 10/325mg tablet PO PRN (19:40)
[2023-12-24 04:18] LABS: ALANINE AMINOTRANSFERASE 47 U/L (12-78); ALBUMIN 1.7 G/DL (3.4-5.0); ALBUMIN/GLOBULIN RATIO 0.4 (1.1-1.5); ALKALINE PHOSPHATASE 145 IU/L (46-116); ANION GAP 4 (8-16); ASPARTATE AMINO TRANSFERASE 46 U/L (10-37); BILIRUBIN,TOTAL 0.1 MG/DL (0.1-1.0); BLOOD UREA NITROGEN 11 MG/DL (7-18); BUN/CREATININE RATIO 26.2 (10.0-20.0); CALCIUM 8.3 MG/DL (8.5-10.1); CHLORIDE 105 MMOL/L (99-107); CREATININE 0.42 MG/DL (0.40-0.90); GLUCOSE 91 MG/DL (70-104); SODIUM 140 MMOL/L (135-145); TOTAL CARBON DIOXIDE 30.8 MMOL/L (24-32); TOTAL PROTEIN 6.1 G/DL (6.4-8.2); eCRCL 148 ML/MIN; eGFR > 90 ML/MIN
[2023-12-24 06:00] VITALS: BP 130/71; PULSE 91; RESP 15; TEMP 98.5; O2SAT 98
[2023-12-24 06:16] LABS: EOSINOPHILS # (AUTO) 0.2 X10'3 (0-0.9); HEMATOCRIT 25.5 % (35.0-45.0); HEMOGLOBIN 8.5 g/dl (12.0-16.0); MEAN CORPUSCULAR HGB CONC 33.2 g/dL (33.0-36.5); MEAN PLATELET VOLUME 5.8 FL (7.4-10.4); MONOCYTES # (AUTO) 1.2 X10'3 (0-0.9); WHITE BLOOD COUNT 7.5 X10'3 (4.5-11.0)
[2023-12-24 06:23] LABS: BASOPHILS % (AUTO) 0.4 % (0-1); EOSINOPHILS % (AUTO) 2.7 % (0-6); LYMPHOCYTES # (AUTO) 2.5 X10'3 (1.1-4.8); LYMPHOCYTES % (AUTO) 32.9 % (21-51); MEAN CORPUSCULAR HEMOGLOBIN 30.1 PG (27.0-31.0); MEAN CORPUSCULAR VOLUME 90.6 FL (78-98); MONOCYTES % (AUTO) 15.6 % (2-12); NEUTROPHILS # (AUTO) 3.6 X10'3 (1.8-7.7); NEUTROPHILS % (AUTO) 48.4 % (42-75); PLATELET COUNT 501 X10'3 (140-440); RED BLOOD COUNT 2.82 X10'6 (4.20-5.60); RED CELL DISTRIBUTION WIDTH 14.8 % (11.5-14.5)
[2023-12-24 08:30] VITALS: RESP 16; O2SAT 98
[2023-12-24 10:00] VITALS: BP 138/69; PULSE 105; RESP 14; TEMP 97.6; O2SAT 99
[2023-12-24 18:00] VITALS: BP 113/66; PULSE 96; RESP 16; TEMP 97.1; O2SAT 98
[2023-12-24 20:00] VITALS: RESP 18; O2SAT 96
[2023-12-24 22:00] VITALS: BP 123/59; PULSE 64; RESP 16; TEMP 97.7; O2SAT 98
[2023-12-25 06:00] VITALS: BP 120/45; PULSE 92; RESP 16; TEMP 98.7; O2SAT 98
[2023-12-25 06:32] LABS: ALANINE AMINOTRANSFERASE 46 U/L (12-78); ALBUMIN 1.8 G/DL (3.4-5.0); ALBUMIN/GLOBULIN RATIO 0.4 (1.1-1.5); ALKALINE PHOSPHATASE 136 IU/L (46-116); ANION GAP -1 (8-16); ASPARTATE AMINO TRANSFERASE 30 U/L (10-37); BILIRUBIN,TOTAL 0.2 MG/DL (0.1-1.0); BLOOD UREA NITROGEN 14 MG/DL (7-18); CALCIUM 7.3 MG/DL (8.5-10.1); CHLORIDE 104 MMOL/L (99-107); GLUCOSE 89 MG/DL (70-104); POTASSIUM 3.8 MMOL/L (3.5-5.1); SODIUM 141 MMOL/L (135-145); TOTAL CARBON DIOXIDE 37.6 MMOL/L (24-32); TOTAL PROTEIN 6.2 G/DL (6.4-8.2); eCRCL 125 ML/MIN; eGFR > 90 ML/MIN
[2023-12-25 07:47] VITALS: RESP 16; O2SAT 98
[2023-12-25 10:00] VITALS: BP 115/55; PULSE 94; RESP 14; TEMP 97.9; O2SAT 95
[2023-12-25 20:00] VITALS: RESP 18; O2SAT 96
[2023-12-26 06:15] VITALS: BP 132/63; PULSE 101; RESP 12; TEMP 98.2; O2SAT 97
[2023-12-26 06:18] LABS: BASOPHILS % (AUTO) 0.3 % (0-1); EOSINOPHILS # (AUTO) 0.2 X10'3 (0-0.9); EOSINOPHILS % (AUTO) 2.1 % (0-6); HEMATOCRIT 26.8 % (35.0-45.0); HEMOGLOBIN 8.8 g/dl (12.0-16.0); LYMPHOCYTES # (AUTO) 2.6 X10'3 (1.1-4.8); LYMPHOCYTES % (AUTO) 24.3 % (21-51); MEAN CORPUSCULAR HEMOGLOBIN 29.9 PG (27.0-31.0); MEAN CORPUSCULAR VOLUME 90.8 FL (78-98); MEAN PLATELET VOLUME 5.5 FL (7.4-10.4); MONOCYTES # (AUTO) 1.5 X10'3 (0-0.9); MONOCYTES % (AUTO) 13.5 % (2-12); NEUTROPHILS # (AUTO) 6.5 X10'3 (1.8-7.7); NEUTROPHILS % (AUTO) 59.8 % (42-75); PLATELET COUNT 512 X10'3 (140-440); RED BLOOD COUNT 2.95 X10'6 (4.20-5.60); RED CELL DISTRIBUTION WIDTH 15.6 % (11.5-14.5); WHITE BLOOD COUNT 10.8 X10'3 (4.5-11.0)
[2023-12-26 06:52] LABS: ALANINE AMINOTRANSFERASE 37 U/L (12-78); ALBUMIN/GLOBULIN RATIO 0.5 (1.1-1.5); ALKALINE PHOSPHATASE 145 IU/L (46-116); ANION GAP 0 (8-16); ASPARTATE AMINO TRANSFERASE 20 U/L (10-37); BILIRUBIN,TOTAL 0.2 MG/DL (0.1-1.0); BLOOD UREA NITROGEN 13 MG/DL (7-18); BUN/CREATININE RATIO 27.7 (10.0-20.0); CALCIUM 8.5 MG/DL (8.5-10.1); CHLORIDE 102 MMOL/L (99-107); CREATININE 0.47 MG/DL (0.40-0.90); GLUCOSE 78 MG/DL (70-104); PHOSPHORUS 6.1 MG/DL (2.3-4.5); POTASSIUM 4.1 MMOL/L (3.5-5.1); PREALBUMIN 22.5 MG/DL (19-36); SODIUM 139 MMOL/L (135-145); TOTAL CARBON DIOXIDE 37.1 MMOL/L (24-32); TOTAL PROTEIN 6.4 G/DL (6.4-8.2); TRIGLYCERIDES 379 MG/DL (20-135); eCRCL 133 ML/MIN; eGFR > 90 ML/MIN
[2023-12-26 08:00] VITALS: RESP 12; O2SAT 97
[2023-12-26 10:00] VITALS: BP 119/61; PULSE 88; RESP 21; TEMP 98.1; O2SAT 96
[2023-12-26] MEDS ORDERED: ZINC/COPPER/MANGANESE/SELENIUM 1 ML, chromic chloride inj. 10 MCG in AA 5%/CALCIUM/LYTE... IV SCH (12:59)
[2023-12-26] MEDS: ZINC/COPPER/MANGANESE/SELENIUM 1 ML, chromic chloride inj. 10 MCG in AA 5%/CALCIUM/LYTE... IV SCH (13:15)
[2023-12-26 20:10] VITALS: RESP 18; O2SAT 96
[2023-12-27 06:00] VITALS: BP 108/53; PULSE 98; RESP 16; TEMP 97.7; O2SAT 94
[2023-12-27 06:31] LABS: ALANINE AMINOTRANSFERASE 34 U/L (12-78); ALBUMIN 2.1 G/DL (3.4-5.0); ALBUMIN/GLOBULIN RATIO 0.5 (1.1-1.5); ALKALINE PHOSPHATASE 215 IU/L (46-116); ANION GAP 7 (8-16); ASPARTATE AMINO TRANSFERASE 25 U/L (10-37); BILIRUBIN,TOTAL 0.2 MG/DL (0.1-1.0); BLOOD UREA NITROGEN 15 MG/DL (7-18); BUN/CREATININE RATIO 25.9 (10.0-20.0); CHLORIDE 101 MMOL/L (99-107); CREATININE 0.58 MG/DL (0.40-0.90); GLUCOSE 74 MG/DL (70-104); POTASSIUM 4.4 MMOL/L (3.5-5.1); SODIUM 139 MMOL/L (135-145); TOTAL CARBON DIOXIDE 30.6 MMOL/L (24-32); TOTAL PROTEIN 6.7 G/DL (6.4-8.2); eCRCL 107 ML/MIN; eGFR > 90 ML/MIN
[2023-12-27 07:52] VITALS: BP_SYST 117; PULSE 103
[2023-12-27 08:00] VITALS: RESP 16; O2SAT 95
[2023-12-27] MEDS ORDERED: CYCL-1 PO (11:03)
[2023-12-27 13:29] VITALS: RESP 16
[2023-12-27] MEDS ORDERED: HYDR-3965 PO (15:28)
== END 2023-12-27 14:50 | disposition home health service (06) | DRG 856 ==
LOC: ER 11:35 → ORTHO 4S 15:40 → UNDOADMIN 15:40 → ORTHO 4S 17:15
PROVIDERS: ADMIT Surgery; ATTEND Surgery
PROC: 0D9 Gastrointestinal System, Drainage (ICD-10-PCS; 2023-12-15)
PROC: 3E1H78Z Irrigation of Lower GI using Irrigating Substance, Via Natural or Artificial Opening (ICD-10-PCS; 2023-12-15)
PROC: 30233N1 Transfusion of Nonautologous Red Blood Cells into Peripheral Vein, Percutaneous Approach (ICD-10-PCS; principal; 2023-12-17)
PROC: 02HV33Z Insertion of Infusion Device into Superior Vena Cava, Percutaneous Approach (ICD-10-PCS; 2023-12-17)
PROC: 0DQ80ZZ Repair Small Intestine, Open Approach (ICD-10-PCS; 2023-12-18)
PROC: 3E1H78Z Irrigation of Lower GI using Irrigating Substance, Via Natural or Artificial Opening (ICD-10-PCS; 2023-12-18)
DX: T81.40XA Infection following a procedure, unspecified, initial encounter (principal); K65.8 Other peritonitis; K63.2 Fistula of intestine; E46 Unspecified protein-calorie malnutrition; G43.909 Migraine, unspecified, not intractable, without status migrainosus; E03.9 Hypothyroidism, unspecified; I10 Essential (primary) hypertension; F32.A Depression, unspecified; D72.829 Elevated white blood cell count, unspecified; D75.839 Thrombocytosis, unspecified; E88.09 Other disorders of plasma-protein metabolism, not elsewhere classified; K66.0 Peritoneal adhesions (postprocedural) (postinfection); Y83.8 Other surgical procedures as the cause of abnormal reaction of the patient, or of later complication, without mention of misadventure at the time of the procedure; Z88.2 Allergy status to sulfonamides; Z88.5 Allergy status to narcotic agent; Z79.899 Other long term (current) drug therapy; Y92.89 Other specified places as the place of occurrence of the external cause; Z68.23 Body mass index [BMI] 23.0-23.9, adult
CPT/HCPCS: 36569; 99285; Z7506; Z7508; 36415; 36430; 76942; 80048; 80053; 80076; 82607; 82728; 82948; 83036; 83540; 83735; 84100; 84134; 84145; 84443; 84478; 85007; 85008; 85025; 85027; 85045; 85610; 85651; 85730; 86885; 86900; 86901; 86920; 93005; 97110; 97161; 97530; 97535; A4340; A4371; A4421; A4615; A4618; A6154; A6209; A6253; A6266; A6402; A6446; A6449; A7000; C1751; C1758; C9113; G0378; J0131; J0780; J1100; J1450; J1650; J1815; J2175; J2250; J2270; J2405; J2543; J2704; J3010; J3475; J3480; J3490; J7040; J7050; J7060; J7120; J7121; P9016; P9045